=== PATIENT | male | born 1990 | race Caucasian/White ===

== ENCOUNTER 2018-05-05 13:05 | Emergency (ER) | payer OTHER ==
[~2018-05-05 13:05] MED LIST: AMOXICILLIN; GUAIFENESIN; HYDR-3083 PO; HYDR-3250 PO; IBU600 PO; KET10 PO; NO ROUTINE MEDS; PRED-314 PO; [UNRECOGNIZED DRUG - REMARK]; acid reflux med
--- NOTE | 2018-05-05 13:33 | ER Report ---
History and Physical Time Seen By MD: 13:20 Hx. of Stated Complaint: PATIENT REPORTS ABDOMINAL PAIN AND BLOODY STOOLS SINCE LAST NIGHT HPI/ROS CHIEF COMPLAINT: Diarrhea with rectal bleeding HISTORY OF PRESENT ILLNESS: Otherwise healthy 28-year-old male comes emergency Department after having several days of diarrhea worse in the last day or so noticed last night wanted to the episodes had some trace blood and they're unclear if it was mucus or clotting patient has minimal pain and tenderness with defecation patient denies abdominal pain or discomfort this time no nausea no fever chills or sweats or additional complaints noted REVIEW OF SYSTEMS: Respiratory: No cough, no dyspnea. Cardiovascular: No chest pain, no palpitations. Gastrointestinal: Diarrhea with rectal bleeding Musculoskeletal: No back pain. Remainder of the 14 system rev: Yes Allergies: Coded Allergies: No Known Drug Allergies (Verified , 05/11/12) Home Meds Discontinued Reported Medications Acetaminophen/Hydrocodone (LORTAB 5/325 MG (OR EQUIV)) 1 Ea Tab, 1 EA PO Q4H, # 12 05/11/12 Prednisone (PREDNISONE) 20 Mg Tablet, 20 MG PO QDAY 05/11/12 Ketorolac Tromethamine (Toradol) 10 Mg Tab, 10 MG PO Q6H, #30 05/09/12 Reviewed Nurses Notes: Yes Old Medical Records Reviewed: Yes Hx Smoking: No Hx Substance Use Disorder: No Hx Alcohol Use: No Constitutional Vital Sign - Last 24 Hours 05/05/18 13:12 Temp 98.6 Pulse 65 Resp 16 B/P (MAP) 158/108 Pulse Ox 96 O2 Delivery Room Air Physical Exam General Appearance: [The patient is alert, has no immediate need for airway protection and no current signs of toxicity.] [ ] Eyes: Pupils equal and round no injection. Respiratory: Chest is non tender, lungs are clear to auscultation. Cardiac: regular rate and rhythm [ ] Gastrointestinal: Abdomen is soft and non tender, no masses, bowel sounds normal. Rectal examination demonstrates trace blood no obvious fissures or hemorrhoids noted. Musculoskeletal: Neck: Neck is supple and non tender. Extremities have full range of motion and are non tender. Skin: No rashes or lesions. [ ] DIFFERENTIAL DIAGNOSIS: After history and physical exam differential diagnosis was considered for infectious diarrhea bacterial diarrhea Medical Decision Making Data Points Result Diagram: 05/05/18 1330 Laboratory Hematology Test 05/05/18 13:30 05/05/18 14:25 Red Blood Count 5.93 M/uL (4.00-5.60) Mean Corpuscular Volume 90.2 fL (80.0-96.0) Mean Corpuscular Hemoglobin 30.6 pg (26.0-33.0) Mean Corpuscular Hemoglobin Concent 34.0 g/dL (32.0-36.0) Red Cell Distribution Width 12.6 % (11.5-14.5) Mean Platelet Volume 8.9 fL (7.2-11.1) Neutrophils (%) (Auto) 67.6 % (39.4-72.5) Lymphocytes (%) (Auto) 21.6 % (17.6-49.6) Monocytes (%) (Auto) 7.6 % (4.1-12.4) Eosinophils (%) (Auto) 2.3 % (0.4-6.7) Basophils (%) (Auto) 0.9 % (0.3-1.4) Nucleated RBC Relative Count (auto) 0.0 /100WBC Neutrophils # (Auto) 7.5 K/uL (2.0-7.4) Lymphocytes # (Auto) 2.4 K/uL (1.3-3.6) Monocytes # (Auto) 0.9 K/uL (0.3-1.0) Eosinophils # (Auto) 0.3 K/uL (0.0-0.5) Basophils # (Auto) 0.1 K/uL (0.0-0.1) Nucleated RBC Absolute Count (auto) 0.00 K/uL Chemistry Test 05/05/18 13:30 05/05/18 14:25 White Blood Count 11.2 k/uL (4.5-11.0) Red Blood Count 5.93 M/uL (4.00-5.60) Hemoglobin 18.1 g/dL (14.0-18.0) Hematocrit 53.4 % (42.0-52.0) Mean Corpuscular Volume 90.2 fL (80.0-96.0) Mean Corpuscular Hemoglobin 30.6 pg (26.0-33.0) Mean Corpuscular Hemoglobin Concent 34.0 g/dL (32.0-36.0) Red Cell Distribution Width 12.6 % (11.5-14.5) Platelet Count 226 K/uL (150-450) Mean Platelet Volume 8.9 fL (7.2-11.1) Neutrophils (%) (Auto) 67.6 % (39.4-72.5) Lymphocytes (%) (Auto) 21.6 % (17.6-49.6) Monocytes (%) (Auto) 7.6 % (4.1-12.4) Eosinophils (%) (Auto) 2.3 % (0.4-6.7) Basophils (%) (Auto) 0.9 % (0.3-1.4) Nucleated RBC Relative Count (auto) 0.0 /100WBC Neutrophils # (Auto) 7.5 K/uL (2.0-7.4) Lymphocytes # (Auto) 2.4 K/uL (1.3-3.6) Monocytes # (Auto) 0.9 K/uL (0.3-1.0) Eosinophils # (Auto) 0.3 K/uL (0.0-0.5) Basophils # (Auto) 0.1 K/uL (0.0-0.1) Nucleated RBC Absolute Count (auto) 0.00 K/uL ED Course/Re-evaluation ED Course Otherwise healthy 28 mL several days of diarrhea reported some blood in his stool culture was sent down to lab including culture sensitivity will start him on by mouth antibiotics may be secondary to infectious etiology him follow up primary care Decision to Disposition Date: May 05, 2018 Decision to Disposition Time: 14:36 Depart Departure Latest Vital Signs Vital Signs Date Time Temp Pulse Resp B/P (MAP) Pulse Ox O2 Delivery O2 Flow Rate FiO2 05/05/18 13:12 98.6 65 16 158/108 96 Room Air Impression: Primary Impression: Infectious colitis Condition: Improved Disposition: HOME OR SELF-CARE Referrals: KELLY ESPINOZA MD 5 Days New Scripts Metronidazole (FLAGYL) 500 Mg Tablet 500 MG PO BID for 7 Days, #14 TAB Prov: RADHA MARINO MD 05/05/18 Ciprofloxacin Hcl 500 Mg Tab (CIPRO 500 MG TAB) 500 Mg Tablet 500 MG PO BID for 7 Days, #14 TAB Prov: RADHA MARINO MD 05/05/18 Patient Instructions: Infectious Colitis (ED) RADHA MARINO MD May 05, 2018 13:33
[2018-05-05 13:45] LABS: PLATELET COUNT, AUTOMATED 226 K/uL (150-450)
[2018-05-05 14:30] VITALS: BP 132/84
[2018-05-05] MEDS ORDERED: CIPR-344 PO (14:38)
[2018-05-05] MEDS ORDERED: METR-1 PO (14:38)
== END 2018-05-05 14:48 | disposition home or self-care (01) ==
LOC: ER 13:10
DX: A09 Infectious gastroenteritis and colitis, unspecified (principal)
CPT/HCPCS: 82274; 85025; 99282